=== PATIENT | female | born 1995 | race Caucasian/White ===

== ENCOUNTER 2017-03-28 01:25 | Emergency (ER) | payer SELFPAY ==
[2017-03-28 05:26] VITALS: RESP 16; TEMP 97.9
--- NOTE | 2017-03-28 05:29 | EDPHY ---
H & P Stated Complaint: Laceration to L arm HPI/ROS: HPI CHIEF COMPLAINT: Left arm laceration HISTORY OF PRESENT ILLNESS: This patient presents emergency room with a laceration to the dorsum of her left arm sustained while cutting LIMES. She states she was too intoxicated to be cutting an avocado and cut her arm. She states she had multiple glasses of wine this evening. She tells me tetanus shot is up-to-date. Past Medical History: No medical history Past Surgical History: No surgical history Social History: Admits to drinking alcohol this evening. 4-5 glasses of wine. Family History: Denies any significant family history ROS REVIEW OF SYSTEMS: A comprehensive 10 point review of systems is otherwise negative aside from elements mentioned in the history of present illness. Exam Constitutional triage nursing summary reviewed, vital signs reviewed, awake/ alert. Eyes normal conjunctivae and sclera, EOMI, PERRLA. HENT normal inspection, atraumatic, moist mucus membranes, no epistaxis, neck supple/ no meningismus, no raccoon eyes. Respiratory clear to auscultation bilaterally, normal breath sounds, no respiratory distress, no wheezing. Cardiovascular rate normal, regular rhythm, no murmur, no edema, distal pulses normal. Gastrointestinal soft, non-tender, no rebound, no guarding, normal bowel sounds, no distension, no pulsatile mass. Genitourinary no CVA tenderness. Musculoskeletal no midline vertebral tenderness, full range of motion, no calf swelling, no tenderness of extremities, no meningismus, good pulses, neurovascularly intact. Skin pink, warm, & dry, no rash, Left posterior arm there is a 6 cm horizontally oriented laceration. Not very deep. However it will need sutures. Distally neurovascular intact. Neurologic awake, alert and oriented x 3, AAOx3, moves all 4 extremities equally, motor intact, sensory intact, CN II-XII intact, normal cerebellar, normal vision, normal speech. Psychiatric normal mood/affect. Heme/Lymph/Immune no lymphadenopathy. Differential Diagnosis: Arm laceration, soft tissue injury Medical Decision Making: Plan for this patient her wound will need to be cleaned and irrigated. And then she will need her laceration repair. Re-evaluation: [id number]: Patient had her wound copiously irrigating clean. Explored and no foreign bodies visualized. Laceration Repair Procedure: Verbal Consent was obtained, Under sterile conditions, The patient had lidocaine with epinephrine used approximately 5ccs to local anesthetize the left posterior arm laceration 6 cm in length Laceration. The wound was copiously irrigated with sterile fluid, the wound was explored for foreign bodies there were none visualized, the wound was explored with a sterile glove to the base. There are no deep structures involved, including no arterial injury. SIX 5.O PROLENE interrupted Sutures were placed in this patient's laceration. He had good close approximation of the wound edges. He Tolerated this well. Patient understands keep the wound clean, dry and protected. Watch for signs of infection. She understands have sutures removed in 10-12 days. Warm soapy water spine. Final diagnosis arm laceration Source: Patient - Personal History LMP (Females 10-55): IUD In Place Current Tetanus/Diphtheria Vaccine: Yes Current Tetanus Diphtheria and Acellular Pertussis (TDAP): Yes - Medical/Surgical History Hx Asthma: No Hx Chronic Respiratory Disease: No Hx Diabetes: No Hx Cardiac Disease: No Hx Renal Disease: No Hx Cirrhosis: No Hx Alcoholism: No Hx HIV/AIDS: No Hx Splenectomy or Spleen Trauma: No Other PMH: denies - Social History Smoking Status: Unknown if ever smoked Constitutional: Initial Vital Signs Temperature (C) 36.6 C 03/28/17 01:30 Heart Rate 76 03/28/17 01:30 Respiratory Rate 16 03/28/17 01:30 Blood Pressure 108/76 03/28/17 01:30 O2 Sat (%) 96 03/28/17 01:30 O2 Delivery Mode Room Air Allergies/Adverse Reactions: No Known Allergies Allergy (Verified 04/05/13 09:27) Home Medications: Medication Instructions Recorded Hydrocodone Bit/Acetaminophen 1 - 2 tab PO Q4-6PRN PRN #11 tab 04/05/13 [Vicodin 5/500] Norethindrone AC-Eth Estradiol 1 each PO 04/05/13 [Microgestin] Departure - Departure Disposition: Home, Routine, Self-Care Clinical Impression: Arm laceration Qualifiers: Encounter type: initial encounter Laterality: left Qualified Code(s): S41.112A - Laceration without foreign body of left upper arm, initial encounter Condition: Good Instructions: Laceration (ED), Care For Your Stitches (ED) Additional Instructions: 1.Your sutures need to be removed in 10-12 days. 2. Please return emergency room if develops worsening pain fever redness drainage from the wound. 3. Keep her wound clean dry and intact.
[2017-03-28 05:47] VITALS: BP 119/63; PULSE 77; O2SAT 94
== END 2017-03-28 03:34 | disposition home or self-care (01) ==
PROC: 0HQCXZZ Repair Left Upper Arm Skin, External Approach (ICD-10-PCS; principal; 2017-03-28)
DX: S41.112A Laceration without foreign body of left upper arm, initial encounter (principal); W45.8XXA Other foreign body or object entering through skin, initial encounter